=== PATIENT | female | born 1985 | race Caucasian/White ===

== ENCOUNTER 2018-04-08 12:10 | Outpatient (CLI) | payer MEDICAID ==
[2018-04-08 19:42] LABS: BILIRUBIN,URINE NEGATIVE (NEGATIVE); GLUCOSE, URINE (UA) NEGATIVE (NEGATIVE); KETONES,URINE (UA) NEGATIVE (NEGATIVE); LEUKOCYTE ESTERASE, URINE NEGATIVE (NEGATIVE); NITRITE,URINE NEGATIVE (NEGATIVE); OCCULT BLOOD,URINE NEGATIVE (NEGATIVE); PROTEIN,URINE NEGATIVE (NEGATIVE); UROBILINOGEN,URINE 0.2 (NORMAL) E.U./dL (NORMAL)
[2018-04-08 19:56] LABS: BACTERIA,URINE None Seen /HPF (None Seen); CLARITY,URINE CLEAR (CLEAR); RBC,URINE None Seen /HPF (0-5); SQUAMOUS EPITHELIAL CELL,UR MANY Squamous (<= Few)
== END 2018-04-08 23:59 | disposition home or self-care (01) ==
LOC: LAB.R 12:10
PROVIDERS: ATTEND Nurse Practitioner Family
DX: R35.0 Frequency of micturition (principal)
CPT/HCPCS: 81001; 87086

== ENCOUNTER 2018-05-06 11:26 | Outpatient (CLI) | payer MEDICAID ==
[2018-05-06 17:55] LABS: BASOPHILS % (AUTO) 0.4 %; EOSINOPHILS # (AUTO) 0.1 10^3/uL (0.0-0.7); EOSINOPHILS % (AUTO) 1.2 %; HGB - HEMOGLOBIN 12.2 g/dL (12.0-16.0); LYMPHOCYTES # (AUTO) 1.2 10^3/uL (1.5-3.5); LYMPHOCYTES % (AUTO) 20.6 %; MEAN CORPUSCULAR HGB CONC 32.8 g/dL (32.0-36.0); MEAN CORPUSCULAR VOLUME 91.6 fL (81.0-99.0); MEAN PLATELET VOLUME 8.9 fL (7.9-10.8); MONOCYTES # (AUTO) 0.5 10^3/uL (0.0-1.0); MONOCYTES % (AUTO) 7.8 %; NEUTROPHILS # (AUTO) 4.2 10^3/uL (1.5-6.6); PLT - PLATELET COUNT 181 10^3/uL (130-450); RED BLOOD COUNT 4.08 10^6/uL (4.20-5.40)
[2018-05-06 18:22] LABS: ALBUMIN 4.3 g/dL (3.2-5.5); ALBUMIN/GLOBULIN RATIO 1.3 (1.0-2.2); BILIRUBIN,TOTAL 0.4 mg/dL (0.2-1.0); CALCIUM 9.2 mg/dL (8.5-10.3); CREATININE 0.7 mg/dL (0.4-1.0); TOTAL PROTEIN 7.6 g/dL (6.7-8.2)
== END 2018-05-06 11:27 | disposition home or self-care (01) ==
LOC: LAB.F 11:26
PROVIDERS: ATTEND Nurse Practitioner Family
DX: R35.0 Frequency of micturition (principal); F41.8 Other specified anxiety disorders
CPT/HCPCS: 36415; 80050

== ENCOUNTER 2018-06-10 15:21 | Outpatient (CLI) | payer MEDICAID ==
[2018-06-11 13:01] LABS: HEPATITIS B SURFACE ANTIGEN NON-REACTIVE (NON-REACTIVE); HEPATITIS C ANTIBODY NON-REACTIVE (NON-REACTIVE)
[2018-06-11 14:21] LABS: HIV AG/AB 4TH GEN NON-REACTIVE (NON-REACTIVE)
[2018-06-12 13:32] LABS: HSV 1 IGG TYPE SPECIFIC AB <0.90 index; HSV 2 IGG TYPE SPECIFIC AB <0.90 index
== END 2018-06-10 15:22 | disposition home or self-care (01) ==
LOC: LAB 15:21
PROVIDERS: ATTEND Obstetrics & Gynecology
DX: Z11.3 Encounter for screening for infections with a predominantly sexual mode of transmission (principal)
CPT/HCPCS: 36415; 81599; 86592; 86695; 86696; 86803; 87340; 87389

== ENCOUNTER 2019-09-08 16:40 | Outpatient (CLI) | payer MEDICAID | END 2019-09-08 16:41 | disposition home or self-care (01) | LOC: COV 16:40 | PROVIDERS: ATTEND Family Medicine | DX: M79.10 Myalgia, unspecified site (principal); R53.83 Other fatigue; J02.9 Acute pharyngitis, unspecified | CPT/HCPCS: 81599 ==

== ENCOUNTER 2019-09-24 23:37 | Emergency (ER) | payer MEDICAID ==
--- NOTE | 2019-09-24 23:43 | ED Physician Documentation ---
History of Present Illness - Stated complaint Stated Complaint: FEM /PX - History obtained from History obtained from: Patient (Patient is a 34-year-old female who presents with a chief complaint of genital sores. Patient reports that she recently had unprotected sex and now she is having what she thinks is a herpes genital outbreak she denies any history of such. She also reports some burning on urination as well. Denies any history of sexually transmitted disease or sexu ally transmitted infections. Reports that her recent sexual contact stated that he had a cold sore on his lip the patient now is presenting with a genital herpes outbreak denies any fevers or headaches or neck pain.) Review of Systems Constitutional: reports: Reviewed and negative Eyes: reports: Reviewed and negative Ears: reports: Reviewed and negative Nose: reports: Reviewed and negative Throat: reports: Reviewed and negative Cardiac: reports: Reviewed and negative Respiratory: reports: Reviewed and negative GI: reports: Reviewed and negative : reports: Dysuria, Reviewed and negative, Other (Vaginal sores) Skin: reports: Reviewed and negative Musculoskeletal: reports: Reviewed and negative Neurologic: reports: Reviewed and negative Psychiatric: reports: Reviewed and negative Endocrine: reports: Reviewed and negative Immunocompromised: reports: Reviewed and negative PD PAST MEDICAL HISTORY - Present Medications Home Medications: Ambulatory Orders Medication Instructions Recorded Confirmed QUEtiapine [SEROquel] 25 mg PO QPM 09/24/19 09/24/19 Cephalexin [Keflex] 500 mg PO BID #10 capsule 09/25/19 Fluconazole [Diflucan] 150 mg PO ONCE PRN #1 tablet 09/25/19 HYDROcod/ACETAM 5/325 [[place] 5/325] 1 tab PO Q6H PRN #7 tablet 09/25/19 Valacyclovir HCl [Valtrex] 1,000 mg PO BID 10 Days #20 tablet 09/25/19 - Allergies Allergies/Adverse Reactions: Allergies Allergy/AdvReac Type Severity Reaction Status Date / Time coconut Allergy Anaphylaxis Verified 09/24/19 23:47 latex Allergy Rash Verified 09/24/19 23:47 methocarbamol Allergy Anaphylaxis Verified 09/24/19 23:47 promethazine Allergy Anaphylaxis Verified 09/24/19 23:47 PD ED PE NORMAL - Vitals Vital signs reviewed: Yes - General General: Alert and oriented X 3, No acute distress - HEENT HEENT: PERRL - Neck Neck: Supple, no meningeal sign - Cardiac Cardiac: RRR, No murmur - Respiratory Respiratory: Clear bilaterally - Abdomen Abdomen: Normal bowel sounds, Soft, Non tender, Non distended - 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 These are tender to palpation.) - Derm Derm: Warm and dry - Extremities Extremities: No deformity - Neuro Neuro: Alert and oriented X 3 - Psych Psych: Normal mood, Normal affect Results - Vitals Vitals: Vital Signs - 24 hr 09/24/19 23:43 Temperature 36.7 C Heart Rate 96 Respiratory 18 Rate Blood Pressure 132/63 H O2 Saturation 100 Oxygen O2 Source Room air - Labs Labs: Laboratory Tests 09/25/19 00:05 Urine Color YELLOW Urine Clarity CLEAR Urine pH 7.5 Ur Specific [place] 1.010 Urine Protein NEGATIVE Urine Glucose (UA) NEGATIVE Urine Ketones TRACE Urine Occult Blood MODERATE H Urine Nitrite NEGATIVE Urine Bilirubin NEGATIVE Urine Urobilinogen 0.2 (NORMAL) Ur Leukocyte Esterase SMALL H Urine RBC 0-5 Urine WBC 4-5 Ur Squamous Epith Cells FEW Squamous Urine Bacteria Rare Ur Microscopic Review INDICATED Urine Culture Comments INDICATED Urine HCG, Qual NEGATIVE PD MEDICAL DECISION MAKING - ED course Complexity details: reviewed results, re-evaluated patient, considered differential (genital herpes. treatment initiated with valacyclovir. Patient is complaining of some dysuria think this is likely to the genital HSV however her urinalysis does show positivity for leukocyte esterase I will prescribe a prescription for Keflex that the patient is to start taking if she has obvious signs of urinary tract infection her urinalysis will be sent for culture. Prescription for Diflucan also provided in case she develops signs Vaginal candidiasis. And prescription for [place] will be provided for short-term pain relief), d/w patient Departure - Departure Disposition: 01 Home, Self Care Clinical Impression: Herpes genitalis in women UTI (urinary tract infection) Qualifiers: Urinary tract infection type: site unspecified Hematuria presence: without hematuria Qualified Code(s): N39.0 - Urinary tract infection, site not specified Condition: Stable Instructions: ED Herpes Simplex Virus Type 2, ED Herpes Simplex Virus Type 1 Follow-Up: your, doctor [Other] - Within 1 week Prescriptions: Cephalexin [Keflex] 500 mg PO BID #10 capsule Fluconazole [Diflucan] 150 mg PO ONCE PRN #1 tablet PRN Reason: vaginal yeast infection HYDROcod/ACETAM 5/325 [[place] 5/325] 1 tab PO Q6H PRN #7 tablet PRN Reason: Pain Valacyclovir HCl [Valtrex] 1,000 mg PO BID 10 Days #20 tablet Comments: follow up with a primary care provider next week for a recheck. take valtrex as directed. take keflex as directed. use norco if you experience severe pain. if you develop signs of a yeast infection you may take the diflucan as directed.
[2019-09-24 23:46] VITALS: BP 132/63
[2019-09-25] MEDS ORDERED: valACYclovir 500 MG TABLET PO SCH
[2019-09-25 00:15] LABS: BILIRUBIN,URINE NEGATIVE (NEGATIVE); GLUCOSE, URINE (UA) NEGATIVE (NEGATIVE); KETONES,URINE (UA) TRACE mg/dL (NEGATIVE); LEUKOCYTE ESTERASE, URINE SMALL (NEGATIVE); NITRITE,URINE NEGATIVE (NEGATIVE); OCCULT BLOOD,URINE MODERATE (NEGATIVE); PH,URINE 7.5 PH (5.0-7.5); PROTEIN,URINE NEGATIVE (NEGATIVE); UROBILINOGEN,URINE 0.2 (NORMAL) E.U./dL (NORMAL)
[2019-09-25 00:25] LABS: BACTERIA,URINE Rare /HPF (None Seen); CLARITY,URINE CLEAR (CLEAR); HCG UR QUAL NEGATIVE; RBC,URINE 0-5 /HPF (0-5); SQUAMOUS EPITHELIAL CELL,UR FEW Squamous (<= Few)
== END 2019-09-25 00:37 | disposition home or self-care (01) ==
LOC: ED 23:37
DX: A60.04 Herpesviral vulvovaginitis (principal); N39.0 Urinary tract infection, site not specified
CPT/HCPCS: 81001; 81003; 81025; 87086; 99283; 99284

== ENCOUNTER 2020-12-07 08:00 | Outpatient (CLI) | payer MEDICAID ==
[2020-12-07 22:43] LABS: BACTERIAL VAGINOSIS DNA NEGATIVE (NEGATIVE); CANDIDA GLABRATA DNA NEGATIVE (NEGATIVE); CANDIDA GROUP DNA NEGATIVE (NEGATIVE); CANDIDA KRUSEI DNA NEGATIVE (NEGATIVE); TRICHOMONAS VAGINALIS DNA NEGATIVE (NEGATIVE)
== END 2020-12-07 23:59 | disposition home or self-care (01) ==
LOC: LAB.S 08:00
PROVIDERS: ATTEND Physician Assistant Medical
DX: B00.9 Herpesviral infection, unspecified (principal)
CPT/HCPCS: 81599; 86695; 86696; 87529; 87661; 87801

== ENCOUNTER 2022-02-20 08:47 | Outpatient (CLI) | payer MEDICAID ==
[2022-02-20 15:02] LABS: BASOPHILS % (AUTO) 0.6 %; EOSINOPHILS # (AUTO) 0.8 10^3/uL (0.0-0.7); EOSINOPHILS % (AUTO) 11.6 %; HCT - HEMATOCRIT 41.3 % (37.0-47.0); HGB - HEMOGLOBIN 13.2 g/dL (12.0-16.0); LYMPHOCYTES # (AUTO) 1.8 10^3/uL (1.5-3.5); LYMPHOCYTES % (AUTO) 28.2 %; MEAN CORPUSCULAR HEMOGLOBIN 31.1 pg (27.0-31.0); MEAN CORPUSCULAR VOLUME 97.2 fL (81.0-99.0); MEAN PLATELET VOLUME 11.1 fL (7.9-10.8); MONOCYTES # (AUTO) 0.5 10^3/uL (0.0-1.0); MONOCYTES % (AUTO) 7.4 %; NEUTROPHILS # (AUTO) 3.4 10^3/uL (1.5-6.6); PLT - PLATELET COUNT 242 10^3/uL (130-450); RED BLOOD COUNT 4.25 10^6/uL (4.20-5.40); RED CELL DISTRIBUTION WIDTH 12.4 % (12.0-15.0); WHITE BLOOD COUNT 6.5 x10^3/uL (4.8-10.8)
[2022-02-20 15:27] LABS: % IRON SATURATION 31 % (20-50); ALBUMIN 4.3 g/dL (3.2-5.5); ALBUMIN/GLOBULIN RATIO 1.3 (1.0-2.2); ALKALINE PHOSPHATASE 41 IU/L (42-121); ALT ALANINE AMINOTRANSFERASE 16 IU/L (10-60); AST ASPARTATE AMINOTRANSFERASE 20 IU/L (10-42); BILIRUBIN,TOTAL 0.7 mg/dL (0.2-1.0); BUN - BLOOD UREA NITROGEN 17 mg/dL (6-20); CALCIUM 9.7 mg/dL (8.5-10.3); CARBON DIOXIDE - CO2 27 mmol/L (21-32); CHLORIDE 103 mmol/L (101-111); CHOL/HDL RATIO 3.4 (<4.4); CHOLESTEROL 206 mg/dL; CREATININE 0.8 mg/dL (0.4-1.0); GFR - MDRD 80 (>89); GLUCOSE 86 mg/dL (70-100); HDL CHOLESTEROL 60 mg/dL; IRON 102 ug/dL (28-170); LDL CHOLESTEROL,CALCULATED 135 mg/dL; LDL/HDL RATIO 2.3 (<4.4); POTASSIUM 4.1 mmol/L (3.5-5.0); SODIUM 137 mmol/L (135-145); TOTAL IRON BINDING CAPACITY 329 ug/dL (250-450); TOTAL PROTEIN 7.6 g/dL (6.7-8.2); TRANSFERRIN 235 mg/dL (192-382); TRIGLYCERIDES 53 mg/dL; VLDL CHOLESTEROL 11 mg/dL
[2022-02-20 15:41] LABS: THYROID STIMULATING HORMONE 0.96 uIU/mL (0.34-5.60)
[2022-02-20 15:47] LABS: FERRITIN 85.3 ng/mL (11.0-306.8)
[2022-02-20 15:51] LABS: FOLATE 8.17 ng/mL (5.90 - >24.8)
== END 2022-02-20 08:48 | disposition home or self-care (01) ==
LOC: LAB.S 08:47
PROVIDERS: ATTEND Registered Nurse
DX: G25.81 Restless legs syndrome (principal); Z13.220 Encounter for screening for lipoid disorders; Z79.899 Other long term (current) drug therapy; Z13.29 Encounter for screening for other suspected endocrine disorder
CPT/HCPCS: 36415; 80053; 80061; 82728; 82746; 83540; 83721; 84443; 84466; 85025

== ENCOUNTER 2022-05-03 10:08 | Outpatient (CLI) | payer MEDICAID ==
[2022-05-03 23:56] LABS: CHLAMYDIA TRACHOMATIS DNA NEGATIVE (NEGATIVE); NEISSERIA GONORRHOEAE DNA NEGATIVE (NEGATIVE); TRICHOMONAS VAGINALIS DNA NEGATIVE (NEGATIVE)
[2022-05-04 05:10] LABS: VITAMIN D 25-HYDROXY 76.7 ng/mL (30.0-100.0)
[2022-05-04 07:09] LABS: RPR Non Reactive (Non Reactive)
[2022-05-04 09:09] LABS: HIV SCREEN 4TH GENERATION Non Reactive (Non Reactive)
== END 2022-05-03 10:09 | disposition home or self-care (01) ==
LOC: LAB.S 10:08
PROVIDERS: ATTEND Registered Nurse
DX: F90.9 Attention-deficit hyperactivity disorder, unspecified type (principal); Z11.3 Encounter for screening for infections with a predominantly sexual mode of transmission
CPT/HCPCS: 36415; 81599; 82306; 86592; 86695; 86696; 87389; 87491; 87591; 87661

== ENCOUNTER 2022-07-17 10:32 | Outpatient (CLI) | payer MEDICAID | END 2022-07-17 10:33 | disposition home or self-care (01) | LOC: LAB.S 10:32 | PROVIDERS: ATTEND Registered Nurse | DX: Z72.51 High risk heterosexual behavior (principal) | CPT/HCPCS: 81599 ==

== ENCOUNTER 2022-07-31 09:21 | Outpatient (CLI) | payer MEDICAID ==
--- NOTE | 2022-07-31 11:37 | XRAY Report ---
PROCEDURE: Chest 2 View X-Ray INDICATIONS: HEMOPTYSIS TECHNIQUE: 2 views of the chest were acquired. COMPARISON: None. FINDINGS: Surgical changes and devices: None. Lungs and pleura: No suspicious mass or consolidation. Mild bilateral perihilar bronchial wall thick ening, right worse than left. No pleural effusion or pneumothorax. Mediastinum: Mediastinal contours appear normal. Heart size is normal. Bones and chest wall: No suspicious bony lesions. Overlying soft tissues appear unremarkable. IMPRESSION: 1. Mild bronchial wall thickening suggests reactive airways disease or bronchitis. Correlate clinical ly. 2. No pneumonia. Reviewed by: Alexandrea Evans MD on 07/31/2022 11:36 AM PDT Approved by: Alexandrea Evans MD on 07/31/2022 11:36 AM PDT Station ID: [id number]
--- NOTE | 2022-07-31 14:55 | XRAY Report ---
PROCEDURE: Foot 2 View BILAT INDICATIONS: JOINT PAIN TECHNIQUE: 2 views of each foot were acquired. COMPARISON: None. FINDINGS: Bones: No fractures or dislocations. Mild first digit hallux valgus bilaterally. No pes planus defor mity. No suspicious bony lesions. Soft tissues: No suspicious soft tissue calcifications or masses. IMPRESSION: 1. Mild bilateral first digit hallux valgus. Reviewed by: Alexandrea Evans MD on 07/31/2022 2:53 PM PDT Approved by: Alexandrea Evans MD on 07/31/2022 2:53 PM PDT Station ID: [id number]
--- NOTE | 2022-07-31 14:56 | XRAY Report ---
PROCEDURE: Hand 2 View BILAT INDICATIONS: JOINT PAIN TECHNIQUE: 2 views of each hand(s) acquired. COMPARISON: None. FINDINGS: Bones: No fractures or dislocations. No significant joint space loss, spur formation, or periarticu lar erosion. No suspicious bony lesions. Soft tissues: No suspicious soft tissue calcifications or masses. IMPRESSION: No radiographic evidence of arthritic change. Reviewed by: Alexandrea Evans MD on 07/31/2022 2:55 PM PDT Approved by: Alexandrea Evans MD on 07/31/2022 2:55 PM PDT Station ID: [id number]
[2022-07-31 14:58] LABS: HCT - HEMATOCRIT 40.4 % (37.0-47.0); HGB - HEMOGLOBIN 12.9 g/dL (12.0-16.0); MEAN CORPUSCULAR HEMOGLOBIN 31.5 pg (27.0-31.0); MEAN CORPUSCULAR HGB CONC 31.9 g/dL (32.0-36.0); MEAN CORPUSCULAR VOLUME 98.5 fL (81.0-99.0); MEAN PLATELET VOLUME 11.2 fL (7.9-10.8); RED BLOOD COUNT 4.1 10^6/uL (4.20-5.40); RED CELL DISTRIBUTION WIDTH 12.8 % (12.0-15.0); WHITE BLOOD COUNT 6.2 x10^3/uL (4.8-10.8)
[2022-07-31 15:32] LABS: URIC ACID 5.3 mg/dL (2.6-7.2)
[2022-07-31 15:42] LABS: CRP - C-REACTIVE PROTEIN < 1.0 mg/dL (0-1.0)
[2022-07-31 15:49] LABS: RHEUMATOID FACTOR NEGATIVE (Negative)
[2022-08-01 14:09] LABS: ANTI-DNA (DS) AB QN <1 IU/mL (0-9)
[2022-08-02 15:08] LABS: ANTINUCLEAR ANTIBODIES IFA Negative (.)
[2022-08-04 17:08] LABS: CYCLIC CITRULLINATED PEP IGG/A 1 units (0-19)
== END 2022-07-31 09:22 | disposition home or self-care (01) ==
LOC: LAB.S 09:21 → DI.S 09:22
PROVIDERS: ATTEND Registered Nurse
DX: R04.2 Hemoptysis (principal); M25.542 Pain in joints of left hand; M25.541 Pain in joints of right hand; M20.12 Hallux valgus (acquired), left foot; M20.11 Hallux valgus (acquired), right foot; M79.7 Fibromyalgia
CPT/HCPCS: 36415; 84550; 85027; 85651; 86038; 86140; 86200; 86225; 86430

== ENCOUNTER 2022-08-06 13:20 | Outpatient (CLI) | payer MEDICAID ==
[2022-08-08 04:09] LABS: HSV 1 IGG TYPE SPEC <0.91 index (0.00-0.90); HSV 2 IGG TYPE SPEC <0.91 index (0.00-0.90)
== END 2022-08-06 13:21 | disposition home or self-care (01) ==
LOC: LAB.S 13:20
PROVIDERS: ATTEND Registered Nurse
DX: R04.2 Hemoptysis (principal); Z72.51 High risk heterosexual behavior
CPT/HCPCS: 36415; 81599; 86480; 86695; 86696

== ENCOUNTER 2022-08-21 17:15 | Emergency (ER) | payer MEDICAID ==
[2022-08-21 17:24] VITALS: BP 131/75
--- NOTE | 2022-08-21 17:48 | ED Physician Documentation ---
History of Present Illness - Stated complaint Stated Complaint: HEAD INJ - Chief complaint Chief Complaint: Laceration - Additonal information Additional information: 37-year-old female presents emergency department for evaluation of a closed head injury. She was at her place of residence when she was letting her dog out through the garage. There was a large object in the rafters that fell down striking her directly on top of the occiput. She fell to the ground. No loss of consciousness but she does report a severe headache. She is crying and tearful. Also endorsing neck pain. She is not amnesic to the events. No anticoagulation. On presentation though tearful and crying, no focal deficits noted Review of Systems Constitutional: reports: Reviewed and negative Skin: reports: Laceration (s) Musculoskeletal: reports: Neck pain Neurologic: reports: Headache, Head injury. denies: Generalized weakness, Numbness, Syncope, Seizure, Confused, LOC PD PAST MEDICAL HISTORY - Past Surgical History Past Surgical History: Yes General: Appendectomy - Present Medications Home Medications: Ambulatory Orders Medication Instructions Recorded Confirmed QUEtiapine [SEROquel] 25 mg PO QPM 09/24/19 09/24/19 Valacyclovir HCl [Valtrex] 1,000 mg PO BID 10 Days #20 tablet 09/25/19 - Allergies Allergies/Adverse Reactions: Allergies Allergy/AdvReac Type Severity Reaction Status Date / Time coconut Allergy Anaphylaxis Verified 08/21/22 17:26 latex Allergy Rash Verified 08/21/22 17:26 methocarbamol Allergy Anaphylaxis Verified 08/21/22 17:26 promethazine Allergy Anaphylaxis Verified 08/21/22 17:26 - Social History Does the pt smoke?: No Smoking Status: Never smoker Does the pt drink ETOH?: No - Immunizations Immunizations are current?: Yes PD ED PE NORMAL - General General: Alert and oriented X 3, No acute distress, Well developed/nourished - HEENT HEENT: Atraumatic, PERRL, Moist mucous membranes - Neck Neck: Supple, no meningeal sign, No adenopathy - Cardiac Cardiac: RRR, No murmur - Respiratory Respiratory: No respiratory distress, Clear bilaterally - Abdomen Abdomen: Normal bowel sounds, Soft Results - Vitals Vitals: Vital Signs - 24 hr 08/21/22 08/21/22 08/21/22 17:21 17:27 18:14 Temperature 36.4 C L Heart Rate 106 H Respiratory 16 17 16 Rate Blood Pressure 131/75 H O2 Saturation 100 08/21/22 18:20 Temperature Heart Rate Respiratory 17 Rate Blood Pressure O2 Saturation Oxygen O2 Source Room air - Rads (name of study) CT head Relevant Findings:: Final report received (No definite intracranial hemorrhage can be seen. Presumed beam hardening artifact can seen involving both frontal lobes. Left worse than right. If it would be helpful for clinical management, consider dedicated short-term follow-up head CT.) cervical CT Relevant Findings:: Final report received (Negative for acute fracture. Focal C5-6 degenerative changes) Procedures - Laceration (location) Scalp laceration Length in cm: 4 Wound type: Into subcut fat Wound preparation: Irrigated copiously NS Skin layer closure: [place] (5) Other: Patient tolerated well, No complications, Tetanus UTD PD Medical Decision Making - ED course Complexity details: reviewed results, re-evaluated patient, d/w patient ED course: 37-year-old female presents to the emergency department for evaluation of a closed head injury. She was letting her dog outside to the garage when a large object fell from the rafters. She did not lose consciousness. Is not anticoagulated. She does have a 4 cm scalp laceration on the top of her head. She presents tearful crying complaining of headache and neck pain. No obvious focal deficits. Subsequently I was able to staple the wound in her scalp with 5 manuel. I did obtain noncontrast CT of her head and scalp. There is minor artifact likely associated with the manuel but no obvious findings to suggest intracranial hemorrhage. I did offer the patient the option to board in the emergency department for repeat CT imaging in 3 to 4 hours however she declined that today. I discussed this finding with the patient and she is comfortable with discharge home. I did offer a short-term course of opioids for headache but she declined today. I am encouraging her to stay with a friend or family member for the next 24 hours as I believe she does have a fairly significant concussion. Emergent return precautions were discussed for worsening symptoms Departure - Departure Disposition: 01 Home, Self Care Clinical Impression: Neck pain Concussion Qualifiers: Encounter type: initial encounter Loss of consciousness presence/duration: without LOC Qualified Code(s): S06.0X0A - Concussion without loss of consciousness, initial encounter Laceration of scalp Qualifiers: Encounter type: initial encounter Qualified Code(s): S01.01XA - Laceration without foreign body of scalp, initial encounter Condition: Stable Record reviewed to determine appropriate education?: Yes Comments: July you were struck by a large object falling from the rafters of the garage when you are letting your animal outside. You did not lose consciousness but you did have a 4 cm scalp laceration. We did close this with 5 manuel today at the bedside. They should be removed in about 1 week. You can shower normally and I recommend placing a thin layer of antibiotic ointment over the manuel. We did do a CT of your head and neck. There are no obvious findings to suggest bruising or bleeding within the brain. I suspect you have a very severe concussion. Over the next 48 to 72 hours I recommend that you get plenty of rest. You can take Tylenol or ibuprofen for discomfort. If at any point you find that you are having worsening symptoms, uncontrolled vomiting blurry vision double vision or feel that your symptoms or not improving then please return immediately to the ER
--- NOTE | 2022-08-21 18:15 | CT Report ---
PROCEDURE: CERVICAL SPINE WO INDICATIONS: pain in neck after hit by large object from above TECHNIQUE: Noncontrast 3 mm thick sections acquired from the skull base to the T4 level. Sagittal and coronal r eformats were then constructed. For radiation dose reduction, the following was used: automated exp osure control, adjustment of mA and/or kV according to patient size. COMPARISON: Correlation is made with the accompanying head CT, 08/21/2022. FINDINGS: Image quality: Excellent. Bones: No fractures or dislocations. Visualized superior ribs are intact. Cervical spine degenerative changes are seen, including mild disc space narrowing at the C5-C6 level. Endplate irregularity and sclerosis can be seen at this level, with mild posterior directed endplate osteophytes. Milder degenerative changes are seen elsewhere. Soft tissues: Prevertebral soft tissues are normal in thickness. No paravertebral hematomas. No ap ical pneumothoraces. IMPRESSION: Negative for fracture. Focal C5-C6 degenerative change. Reviewed by: Minh Verduzco MD on 08/21/2022 5:14 PM USMAN Approved by: Minh Verduzco MD on 08/21/2022 5:14 PM USMAN Station ID: [id number]
--- NOTE | 2022-08-21 18:18 | CT Report ---
PROCEDURE: HEAD WO INDICATIONS: headache after hit my ;large object > 100 lbs TECHNIQUE: Noncontrast 4.5 mm thick angled axial sections acquired from the foramen magnum to the vertex. For r adiation dose reduction, the following was used: automated exposure control, adjustment of mA and/or kV according to patient size. COMPARISON: Correlation is made with the accompanying cervical spine CT. FINDINGS: Image quality: Streak artifact can be seen. There is streak artifact seen through the skull base. CSF spaces: Basal cisterns are patent. No extra-axial fluid collections. Ventricles are normal in size and shape. Brain: No intracranial hemorrhage can be seen. There is presumed beam hardening artifact seen involv ing the frontal lobes anteriorly, left worse than right, as on series 4 image 21 and on series 5 imag e 13. No midline shift. No intracranial masses. Webb-white matter interface is normal. Skull and face: A repaired scalp laceration can be seen anteriorly and to the left of the midline. No associated calvarial fracture is seen. Calvarium and visualized facial bones are intact, without kev picious lesions. Sinuses: Visualized sinuses and mastoids are clear. IMPRESSION: Repaired scalp laceration seen anteriorly and on the left. No definite intracranial hemorrhage can be seen. Presumed beam hardening artifact can be seen involvi ng both frontal lobes, left worse than right. If it would be helpful for clinical management decision making, please consider a dedicated short-ter m follow-up head CT. Reviewed by: Minh Verduzco MD on 08/21/2022 5:17 PM USMAN Approved by: Minh Verduzco MD on 08/21/2022 5:17 PM USMAN Station ID: [id number]
--- OUTSIDE RECORDS SUMMARY | 2022-08-21 18:23 | EXTERNAL MEDICAL SUMMARY RPT | Continuity of Care Document ---
:1985 Author Organization [facility] Address [address] [place] [address] Phone Care Team Providers Name Role Phone Dago Roweson Unavailable Unavailable Allergies No information. Encounters No information. Functional Status No information. Immunizations No information. Medications date description facility 2022-06-07 00:00 ferrous sulfate [facility] 2022-06-12 00:00 ferrous sulfate [facility] 2022-06-07 00:00 spironolactone [facility] 2022-06-12 00:00 spironolactone [facility] 2022-06-07 00:00 iron bisglycinate chelate [facility] 2022-06-12 00:00 iron bisglycinate chelate [facility] 2022-06-07 00:00 spironolactone [facility] 2022-06-12 00:00 spironolactone [facility] 2022-06-07 00:00 gabapentin [facility] 2022-06-12 00:00 gabapentin [facility] 2022-06-07 00:00 quetiapine [facility] 2022-06-07 00:00 spironolactone [facility] 2022-06-12 00:00 spironolactone [facility] 2022-06-07 00:00 iron bisglycinate chelate [facility] 2022-06-12 00:00 iron bisglycinate chelate [facility] 2022-06-07 00:00 gabapentin [facility] 2022-06-12 00:00 gabapentin [facility] 2022-06-07 00:00 quetiapine [facility] 2022-06-07 00:00 spironolactone [facility] 2022-06-12 00:00 spironolactone [facility] 2022-06-07 00:00 quetiapine [facility] 2022-06-07 00:00 gabapentin [facility] 2022-06-12 00:00 gabapentin [facility] 2022-06-07 00:00 quetiapine [facility] 2022-06-07 00:00 gabapentin [facility] 2022-06-12 00:00 gabapentin [facility] 2022-06-07 00:00 ferrous sulfate [facility] 2022-06-12 00:00 ferrous sulfate [facility] 2022-06-07 00:00 iron bisglycinate chelate [facility] 2022-06-12 00:00 iron bisglycinate chelate [facility] 2022-06-07 00:00 ferrous sulfate [facility] 2022-06-12 00:00 ferrous sulfate [facility] 2022-06-07 00:00 red algae [facility] 2022-06-12 00:00 [facility] Cathi mejia Problems No information. Procedures No information. Results/Labs No information. Social History No information. Vital Signs No information.
[2022-08-21] MEDS ORDERED: KETOROLAC 30 MG/ML VIAL IM STA (18:43)
== END 2022-08-21 18:56 | disposition home or self-care (01) ==
LOC: ED 17:15
DX: S01.01XA Laceration without foreign body of scalp, initial encounter (principal); S06.0X0A Concussion without loss of consciousness, initial encounter; M54.2 Cervicalgia; W20.8XXA Other cause of strike by thrown, projected or falling object, initial encounter; Y93.K9 Activity, other involving animal care; Y92.008 Other place in unspecified non-institutional (private) residence as the place of occurrence of the external cause
CPT/HCPCS: 12002; 99283; 99284

== ENCOUNTER 2022-08-29 11:06 | Emergency (ER) | payer MEDICAID ==
[2022-08-29 11:16] VITALS: BP 117/59
--- OUTSIDE RECORDS SUMMARY | 2022-08-29 11:24 | EXTERNAL MEDICAL SUMMARY RPT | Continuity of Care Document ---
Author Name Unknown Address [address] [place] [address] Phone Organization [facility] Address [address] [place] [address] Phone Care Team Providers Care Security System Engineer Name Role Phone Anusha Rowe Unavailable Unavailable Medications date description facility 2022-06-07 00:00 ferrous sulfate [facility] 2022-06-12 00:00 ferrous sulfate [facility] 2022-06-07 00:00 spironolactone [facility] 2022-06-12 00:00 spironolactone [facility] 2022-06-07 00:00 iron bisglycinate chelate [facility] 2022-06-12 00:00 iron bisglycinate chelate [facility] 2022-06-07 00:00 spironolactone [facility] 2022-06-12 00:00 spironolactone [facility] 2022-06-07 00:00 gabapentin [facility] 2022-06-12 00:00 gabapentin [facility] 2022-06-07 00:00 quetiapine [facility] 2022-06-07 00:00 spironolactone [facility] 2022-06-12 00:00 spironolactone [facility] 2022-06-07 00:00 iron bisglycinate chelate [facility] 2022-06-12 00:00 iron bisglycinate chelate [facility] 2022-06-07 00:00 gabapentin [facility] 2022-06-12 00:00 gabapentin [facility] 2022-06-07 00:00 quetiapine [facility] 2022-06-07 00:00 spironolactone [facility] 2022-06-12 00:00 spironolactone [facility] 2022-06-07 00:00 quetiapine [facility] 2022-06-07 00:00 gabapentin [facility] 2022-06-12 00:00 gabapentin [facility] 2022-06-07 00:00 quetiapine [facility] 2022-06-07 00:00 gabapentin [facility] 2022-06-12 00:00 gabapentin [facility] 2022-06-07 00:00 ferrous sulfate [facility] 2022-06-12 00:00 ferrous sulfate [facility] 2022-06-07 00:00 iron bisglycinate chelate [facility] 2022-06-12 00:00 iron bisglycinate chelate [facility] 2022-06-07 00:00 ferrous sulfate [facility] 2022-06-12 00:00 ferrous sulfate [facility] 2022-06-07 00:00 red algae [facility] 2022-06-12 00:00 red algae [facility]
--- NOTE | 2022-08-29 12:24 | ED Physician Documentation ---
History of Present Illness - Stated complaint Stated Complaint: STITCH REMOVAL - Chief complaint Chief Complaint: General - Additonal information Additional information: 37-year-old female presents emergency department to have manuel removed from the top of her scalp placed little more than a week ago by myself after a large box fell from the rafters. 5 manuel were placed. Tetanus is up-to-date. Wound has healed well. She has had no residual headaches nausea or vomiting. Review of Systems Constitutional: reports: Reviewed and negative GI: denies: Nausea, Vomiting Neurologic: reports: Head injury. denies: Headache PD PAST MEDICAL HISTORY - Past Surgical History Past Surgical History: Yes General: Appendectomy - Present Medications Home Medications: Ambulatory Orders Medication Instructions Recorded Confirmed QUEtiapine [SEROquel] 25 mg PO QPM 09/24/19 09/24/19 Valacyclovir HCl [Valtrex] 1,000 mg PO BID 10 Days #20 tablet 09/25/19 - Allergies Allergies/Adverse Reactions: Allergies Allergy/AdvReac Type Severity Reaction Status Date / Time coconut Allergy Anaphylaxis Verified 08/21/22 17:26 latex Allergy Rash Verified 08/21/22 17:26 methocarbamol Allergy Anaphylaxis Verified 08/21/22 17:26 promethazine Allergy Anaphylaxis Verified 08/21/22 17:26 - Social History Does the pt smoke?: No Smoking Status: Never smoker Does the pt drink ETOH?: No - Immunizations Immunizations are current?: Yes PD ED PE EXPANDED - General General: Alert, No acute distress - HEENT HEENT: Other (4 cm scalp laceration top of occiput. [address] Wound has healed well. No drainage. Manuel were easily removed at bedside. Wound remains intact.) Results - Vitals Vitals: Vital Signs - 24 hr 08/29/22 11:13 Temperature 36.3 C L Heart Rate 92 Respiratory 16 Rate Blood Pressure 117/59 L O2 Saturation 100 Oxygen O2 Source Room air PD Medical Decision Making - ED course Complexity details: d/w patient ED course: 37-year-old female here to have the manuel removed from the top of her occiput. These were placed little more than a week ago by myself after a large box on top of her head. At that time CT had been negative. She is recovered well at home without residual headaches nausea or vomiting. Wound has healed well. Manuel are easily removed. Discharged home in stable condition Departure - Departure Disposition: 01 Home, Self Care Clinical Impression: Encounter for staple removal Condition: Stable Record reviewed to determine appropriate education?: Yes Comments: July we did remove the 5 manuel at bedside. Your laceration appears to have healed well. You can continue the care that you have been using for this and I do not expect any complications moving forward.
== END 2022-08-29 12:28 | disposition home or self-care (01) ==
LOC: ED 11:06
DX: S01.01XD Laceration without foreign body of scalp, subsequent encounter (principal); W20.8XXD Other cause of strike by thrown, projected or falling object, subsequent encounter
CPT/HCPCS: 99281; 99282

== ENCOUNTER 2023-11-19 09:30 | Outpatient (CLI) | payer MEDICAID ==
[2023-11-19 14:48] LABS: BASOPHILS # (AUTO) 0.1 10^3/uL (0.0-0.1); BASOPHILS % (AUTO) 0.9 %; EOSINOPHILS # (AUTO) 0.2 10^3/uL (0.0-0.7); EOSINOPHILS % (AUTO) 4.1 %; HGB - HEMOGLOBIN 12.9 g/dL (12.0-16.0); LYMPHOCYTES # (AUTO) 1.9 10^3/uL (1.5-3.5); LYMPHOCYTES % (AUTO) 32.7 %; MEAN CORPUSCULAR HEMOGLOBIN 31.1 pg (27.0-31.0); MEAN CORPUSCULAR HGB CONC 31.5 g/dL (32.0-36.0); MEAN CORPUSCULAR VOLUME 98.8 fL (81.0-99.0); MEAN PLATELET VOLUME 10.9 fL (7.9-10.8); MONOCYTES # (AUTO) 0.4 10^3/uL (0.0-1.0); MONOCYTES % (AUTO) 6.8 %; NEUTROPHILS # (AUTO) 3.2 10^3/uL (1.5-6.6); NEUTROPHILS % (AUTO) 55.3 %; PLT - PLATELET COUNT 206 10^3/uL (130-450); RED BLOOD COUNT 4.15 10^6/uL (4.20-5.40); RED CELL DISTRIBUTION WIDTH 12.1 % (12.0-15.0); WHITE BLOOD COUNT 5.8 x10^3/uL (4.8-10.8)
[2023-11-19 15:40] LABS: ALBUMIN 4.6 g/dL (3.2-5.5); ALBUMIN/GLOBULIN RATIO 1.6 (1.0-2.2); ALKALINE PHOSPHATASE 45 IU/L (42-121); ALT ALANINE AMINOTRANSFERASE 10 IU/L (10-60); AST ASPARTATE AMINOTRANSFERASE 15 IU/L (10-42); BILIRUBIN,TOTAL 0.3 mg/dL (0.2-1.0); BUN - BLOOD UREA NITROGEN 12 mg/dL (6-20); CARBON DIOXIDE - CO2 28 mmol/L (21-32); CHLORIDE 103 mmol/L (101-111); CHOL/HDL RATIO 3.2 (<4.4); CHOLESTEROL 175 mg/dL; CREATININE 0.7 mg/dL (0.6-1.3); GFR - MDRD 93 (>89); GLUCOSE 91 mg/dL (74-104); HDL CHOLESTEROL 55 mg/dL; LDL CHOLESTEROL,CALCULATED 99 mg/dL; LDL/HDL RATIO 1.8 (<4.4); SODIUM 135 mmol/L (135-145); TOTAL PROTEIN 7.5 g/dL (6.4-8.9); TRIGLYCERIDES 106 mg/dL; VLDL CHOLESTEROL 21 mg/dL
[2023-11-19 15:41] LABS: THYROID STIMULATING HORMONE 1.58 uIU/mL (0.34-5.60)
== END 2023-11-19 09:31 | disposition home or self-care (01) ==
LOC: LAB.S 09:30
PROVIDERS: ATTEND Registered Nurse
DX: Z13.228 Encounter for screening for other metabolic disorders (principal); Z13.220 Encounter for screening for lipoid disorders; Z13.29 Encounter for screening for other suspected endocrine disorder; Z13.0 Encounter for screening for diseases of the blood and blood-forming organs and certain disorders involving the immune mechanism
CPT/HCPCS: 36415; 80053; 80061; 83721; 84443; 85025

== ENCOUNTER 2024-01-08 09:59 | Outpatient (CLI) | payer MEDICAID | END 2024-01-08 10:00 | disposition home or self-care (01) | LOC: CAM 09:59 | PROVIDERS: ATTEND Physician Assistant Medical | DX: G44.229 Chronic tension-type headache, not intractable (principal); S39.012D Strain of muscle, fascia and tendon of lower back, subsequent encounter; M25.512 Pain in left shoulder; M54.2 Cervicalgia; G43.909 Migraine, unspecified, not intractable, without status migrainosus | CPT/HCPCS: 97810; 97811 ==

== ENCOUNTER 2024-01-15 10:54 | Outpatient (CLI) | payer MEDICAID | END 2024-01-15 10:55 | disposition home or self-care (01) | LOC: CAM 10:54 | PROVIDERS: ATTEND Physician Assistant Medical | DX: G44.229 Chronic tension-type headache, not intractable (principal); S39.012D Strain of muscle, fascia and tendon of lower back, subsequent encounter; M25.512 Pain in left shoulder; M54.2 Cervicalgia; G43.909 Migraine, unspecified, not intractable, without status migrainosus | CPT/HCPCS: 97810; 97811 ==